=== PATIENT | male | born 1985 | race Caucasian/White ===

== ENCOUNTER 2018-03-03 10:16 | Emergency (ER) | payer MEDICAID, BC ==
[~2018-03-03] VITALS: Ht 182.9 cm; Wt 100.0 kg
[2018-03-03] MEDS ORDERED: LORazepam 2 MG/ML, 1ML ONE (10:48)
[2018-03-03] MEDS ORDERED: PLEASE ENTER ALLERGIES MC SCH (11:00)
[2018-03-03] MEDS ORDERED: LORazepam 2 MG/ML, 1ML IM ONE (11:00)
[2018-03-03 11:24] LABS: ANION GAP 16 mmol/L (5-15); CALCIUM 9.1 mg/dL (8.5-10.1); CHLORIDE 98 mmol/L (98-107)
[2018-03-03 11:25] LABS: BASOPHILS % (AUTO) 0 % (0-1); EOSINOPHILS # (AUTO) 0.03 x10^3/uL (0-0.4); EOSINOPHILS % (AUTO) 0 % (1-7); LYMPHOCYTES # (AUTO) 1.09 x10^3/uL (1-3.4); LYMPHOCYTES % (AUTO) 10 % (22-44); MD NO; MEAN CORPUSCULAR HEMOGLOBIN 28.4 pg (27.5-34.5); MEAN CORPUSCULAR HGB CONC 33.4 g/dL (33.2-36.2); MEAN CORPUSCULAR VOLUME 84.9 fL (81-97); MEAN PLATELET VOLUME 8.7 fL (7.4-10.4); MONOCYTES # (AUTO) 0.56 x10^3/uL (0.2-0.8); MONOCYTES % (AUTO) 5 % (2-9); NEUTROPHILS # (AUTO) 8.81 x10^3/uL (1.8-6.8); NEUTROPHILS % (AUTO) 84 % (42-75); PLATELET COUNT 280 x10^3/uL (130-400); RED BLOOD COUNT 5.28 x10^6/uL (4.38-5.82); RED CELL DISTRIBUTION WIDTH 13.1 % (9.4-14.8)
[2018-03-03 11:27] LABS: ALANINE AMINOTRANSFERASE 48 U/L (12-78); ALKALINE PHOSPHATASE 93 U/L (45-117); BILIRUBIN,TOTAL 0.8 mg/dL (0.2-1.0); CREATININE 1.29 mg/dL (0.7-1.3); TOTAL PROTEIN 7.6 g/dL (6.4-8.2)
[2018-03-03 11:30] LABS: SALICYLATE LEVEL < 1.7 mg/dL (2.8-20.0)
[2018-03-03 11:32] LABS: ACETAMINOPHEN < 2 mcg/mL (10-30)
[2018-03-03 12:21] LABS: AMPHETAMINE SCREEN, URINE Negative (Negative); BARBITURATE SCREEN, URINE Negative (Negative); BENZODIAZEPINE SCREEN, URINE Positive (Negative); CANNABINOID SCREEN, URINE Positive (Negative); COCAINE SCREEN, URINE Negative (Negative); METHADONE SCREEN, URINE Negative (Negative); OPIATE SCREEN, URINE Negative (Negative)
[2018-03-03] MEDS ORDERED: LISI1TAB5 PO (12:21)
[2018-03-03] MEDS ORDERED: ALPR0.5T10 SL (12:21)
[2018-03-03] MEDS ORDERED: PARO20TA4 PO (12:21)
[2018-03-03] MEDS ORDERED: SODIUM CHLORIDE 0.9% 1,000ML IVBOLUS ONE (12:30)
[2018-03-03] MEDS ORDERED: SODIUM CHLORIDE FLUSH 10ML SYR IVF ONE (12:30)
[2018-03-03] MEDS ORDERED: LORazepam 1MG TABLET ONE ×2 (12:39→16:56)
[2018-03-03] MEDS ORDERED: LORazepam 1MG TABLET PO ONE ×2 (13:00→15:30)
[2018-03-03] MEDS ORDERED: HYDROcodone/APAP 5/325 TABLET PO STA (14:40)
[2018-03-03] MEDS ORDERED: HYDROcodone/APAP 5/325 TABLET ONE (15:07)
[2018-03-03] MEDS ORDERED: IBUPROFEN 200 MG TABLET ONE (21:47)
[2018-03-03] MEDS ORDERED: DIPHENHYDRAMINE 25 MG CAPSULE ONE (21:47)
[2018-03-03] MEDS ORDERED: DIPHENHYDRAMINE 25 MG CAPSULE PO ONE (22:00)
[2018-03-03] MEDS ORDERED: IBUPROFEN 200 MG TABLET PO ONE (22:00)
[2018-03-04] MEDS ORDERED: LORazepam 1MG TABLET ONE ×3 (02:28→12:12)
[2018-03-04] MEDS: LORazepam 1MG TABLET PO PRN ×2 (02:31→08:46)
[2018-03-04] MEDS ORDERED: ACETAMINOPHEN 325 MG TABLET ONE (08:25)
[2018-03-04] MEDS ORDERED: ACETAMINOPHEN 500 MG TABLET PO ONE (08:30)
[2018-03-04] MEDS ORDERED: OLANZAPINE 5 MG TABLET ONE ×2 (12:12→21:40)
[2018-03-04] MEDS: OLANZAPINE 5 MG TABLET PO SCH ×2 (12:14→21:44)
[2018-03-04] MEDS: LORazepam 0.5MG TABLET PO SCH ×2 (12:14→16:58)
[2018-03-04 23:01] VITALS: BP 128/84
== END 2018-03-04 23:04 | disposition home or self-care (01) ==
LOC: ED 13:13
DX: R45.851 Suicidal ideations (principal); F33.2 Major depressive disorder, recurrent severe without psychotic features; F12.288 Cannabis dependence with other cannabis-induced disorder; Z79.899 Other long term (current) drug therapy
CPT/HCPCS: 36415; 80053; 80307; 80329; 82140; 85025; 93005; 96372; 99285; J2060; J7030; Q0163; 96360; 96361; G0480